=== PATIENT | female | born 1995 | race Caucasian/White ===

== ENCOUNTER 2016-08-15 12:28 | Inpatient (IN) | payer MEDICAID, OTHER ==
[~2016-08-15] VITALS: Ht 157.5 cm; Wt 61.8 kg
[~2016-08-15 12:28] MED LIST: BENZ100C70 PO; IBUP-1542 PO; PEN500 PO; PREN-29 PO
[2016-08-15 12:53] VITALS: Ht 157.5 cm; Wt 61.8 kg
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
[2016-08-15 13:39] LABS: BASOPHILS % 0.2 % (0.0-2.0); EOSINOPHILS % 0.6 % (0.0-7.0); HEMATOCRIT 32.9 % (37.0-47.0); HEMOGLOBIN 11.3 g/dl (12.0-16.0); LYMPHOCYTES # 1.9 10^3/ul (0.8-2.9); LYMPHOCYTES % 21.4 % (15.0-51.0); MEAN CORPUSCULAR HEMOGLOBIN 31.1 pg (29.0-33.0); MEAN CORPUSCULAR HGB CONC 34.3 g/dl (32.0-37.0); MEAN CORPUSCULAR VOLUME 90.7 fl (82.0-101.0); MEAN PLATELET VOLUME 7.4 fl (7.4-10.4); MONOCYTE # 0.6 10^3/ul (0.3-0.9); MONOCYTES % 6.5 % (0.0-11.0); NEUTROPHIL # 6.2 10^3/ul (1.6-7.5); NEUTROPHILS % 71.3 % (39.0-77.0); PLATELET COUNT 197 10^3/UL (140-440); RED BLOOD COUNT 3.63 10^6/ul (4.20-5.40); RED CELL DISTRIBUTION WIDTH 13.2 % (11.5-14.5); UNCORRECTED WBC 8.6 10^3/ul (4.8-10.8); WHITE BLOOD COUNT 8.6 10^3/ul (4.8-10.8)
[2016-08-15 13:40] LABS: CONDITION 1
[2016-08-15 13:43] LABS: INR 0.97; PROTIME 12.9 Sec (12.2-14.2)
[2016-08-15 13:44] LABS: PARTIAL THROMBOPLASTIN TIME 26.2 Sec (25.0-35.0)
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
[2016-08-15 16:48] LABS: BASOPHILS % 0.4 % (0.0-2.0); EOSINOPHILS # 0.1 10^3/ul (0.0-0.5); HEMATOCRIT 32.8 % (37.0-47.0); HEMOGLOBIN 11.3 g/dl (12.0-16.0); LYMPHOCYTES # 2.1 10^3/ul (0.8-2.9); LYMPHOCYTES % 25.8 % (15.0-51.0); MEAN CORPUSCULAR HEMOGLOBIN 31.2 pg (29.0-33.0); MEAN CORPUSCULAR HGB CONC 34.4 g/dl (32.0-37.0); MEAN CORPUSCULAR VOLUME 90.8 fl (82.0-101.0); MEAN PLATELET VOLUME 7.3 fl (7.4-10.4); MONOCYTE # 0.6 10^3/ul (0.3-0.9); MONOCYTES % 7.1 % (0.0-11.0); NEUTROPHIL # 5.4 10^3/ul (1.6-7.5); NEUTROPHILS % 65.7 % (39.0-77.0); PLATELET COUNT 200 10^3/UL (140-440); RED BLOOD COUNT 3.62 10^6/ul (4.20-5.40); RED CELL DISTRIBUTION WIDTH 13.2 % (11.5-14.5); UNCORRECTED WBC 8.3 10^3/ul (4.8-10.8); WHITE BLOOD COUNT 8.3 10^3/ul (4.8-10.8)
[2016-08-15 16:49] LABS: CONDITION 1
[2016-08-15 16:58] LABS: INR 0.95; PROTIME 12.7 Sec (12.2-14.2)
[2016-08-15 16:59] LABS: PARTIAL THROMBOPLASTIN TIME 26.9 Sec (25.0-35.0)
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
[2016-08-15] MEDS: LACTATED RINGER'S 1,000 ML IV SCH (18:41)
--- NOTE | 2016-08-15 20:05 | RADRPT ---
PROCEDURE: Obstetrical ultrasound greater than 14 weeks CLINICAL INDICATION: Contractions. Evaluate cervical length. TECHNIQUE: Real time sonographic imaging of the gravid uterus is performed transabdominally and mu ltiple static woody scale and Doppler images are submitted for review as are measurements. The image s are reviewed on the PACS. COMPARISON: Amniotic fluid index study of 08/15/2016 FINDINGS: The cervical os is closed with a normal cervical length of 4.29 cm. There is a single living intrauterine gestation in breech presentation. The heart beat is est imated at 146 bpm. RPTAT:HJJR IMPRESSION: 1. Single viable intrauterine gestation in breech presentation with the closed cervical length estim ated at 4.29 cm. Physician Gilbert Date Time Electronically viewed and signed by Physician Gilbert on 08/15/2016 20:04 JR/
[2016-08-15] MEDS ORDERED: ACETAMINOPHEN 325 MG TAB PO PRN (22:00)
[2016-08-16] MEDS: LACTATED RINGER'S 1,000 ML IV SCH ×2 (01:26→09:17)
[2016-08-16 06:25] LABS: INR 1.06; PARTIAL THROMBOPLASTIN TIME 26.4 Sec (25.0-35.0); PROTIME 13.8 Sec (12.2-14.2); PT RATIO 1.1
[2016-08-16 10:09] LABS: BASOPHILS % 0.4 % (0.0-2.0); EOSINOPHILS # 0.1 10^3/ul (0.0-0.5); EOSINOPHILS % 1.1 % (0.0-7.0); HEMATOCRIT 32.3 % (37.0-47.0); HEMOGLOBIN 10.9 g/dl (12.0-16.0); LYMPHOCYTES # 1.8 10^3/ul (0.8-2.9); LYMPHOCYTES % 25.1 % (15.0-51.0); MEAN CORPUSCULAR HEMOGLOBIN 31.3 pg (29.0-33.0); MEAN CORPUSCULAR HGB CONC 33.7 g/dl (32.0-37.0); MEAN CORPUSCULAR VOLUME 92.8 fl (82.0-101.0); MEAN PLATELET VOLUME 9.6 fl (7.4-10.4); MONOCYTE # 0.5 10^3/ul (0.3-0.9); MONOCYTES % 6.8 % (0.0-11.0); NEUTROPHIL # 4.7 10^3/ul (1.6-7.5); NEUTROPHILS % 65.5 % (39.0-77.0); PLATELET COUNT 184 10^3/UL (140-415); RED BLOOD COUNT 3.48 10^6/ul (4.20-5.40); RED CELL DISTRIBUTION WIDTH 12.8 % (11.5-14.5); WHITE BLOOD COUNT 7.2 10^3/ul (4.8-10.8)
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
== END 2016-08-16 12:55 | disposition home or self-care (01) | DRG 782 ==
LOC: OBT 12:28 → L-D 12:29 → OBG 18:00 → OBT 18:00
PROVIDERS: ADMIT Obstetrics & Gynecology; ATTEND Obstetrics & Gynecology
DX: O62.9 Abnormality of forces of labor, unspecified (principal); Z3A.26 26 weeks gestation of pregnancy; V43.52XA Car driver injured in collision with other type car in traffic accident, initial encounter; Y92.414 Local residential or business street as the place of occurrence of the external cause
CPT/HCPCS: 36415; 76815; 76817; 82731; 85025; 85384; 85460; 85610; 85730; 86850; 86900; 86901; G0463; J7120

== ENCOUNTER 2016-11-16 05:47 | Inpatient (IN) | payer OTHER ==
[~2016-11-16] VITALS: Ht 157.5 cm; Wt 73.0 kg
[~2016-11-16 05:47] MED LIST changes: -BENZ100C70 PO; -IBUP-1542 PO; -PEN500 PO
[2016-11-16 05:51] VITALS: Ht 157.5 cm; Wt 73.0 kg
[2016-11-16] MEDS ORDERED: OXYTOCIN 30 UNITS/LR 500 ML IV PRN ×2 (06:00→13:00)
[2016-11-16] MEDS ORDERED: METHYLERGONOVINE 0.2 MG INJ IM PRN ×2 (06:00→13:00)
[2016-11-16] MEDS ORDERED: CEFAZOLIN 2 GM/50 ML (PMX) 50 ML IV SCH (06:00)
[2016-11-16] MEDS ORDERED: CARBOPROST 250 MCG INJ IM PRN ×2 (06:00→13:00)
[2016-11-16] MEDS ORDERED: MISOPROSTOL 200 MCG TAB PR PRN ×2 (06:00→13:00)
[2016-11-16] MEDS ORDERED: OXYTOCIN 30 UNITS/LR 500 ML IV SCH (06:00)
[2016-11-16 06:12] VITALS: BP 102/62; PULSE 88; RESP 18
[2016-11-16] MEDS: LACTATED RINGER'S 1,000 ML IV SCH ×2 (06:20→07:40)
[2016-11-16 06:27] LABS: ADD SCAN DIFF NO
[2016-11-16 06:34] LABS: BASOPHILS % 0.4 % (0.0-2.0); EOSINOPHILS # 0.2 10^3/ul (0.0-0.5); EOSINOPHILS % 1.9 % (0.0-7.0); HEMATOCRIT 34.6 % (37.0-47.0); HEMOGLOBIN 11.7 g/dl (12.0-16.0); LYMPHOCYTES % 35.4 % (15.0-51.0); MEAN CORPUSCULAR HEMOGLOBIN 30.8 pg (29.0-33.0); MEAN CORPUSCULAR HGB CONC 33.8 g/dl (32.0-37.0); MEAN CORPUSCULAR VOLUME 91.1 fl (82.0-101.0); MEAN PLATELET VOLUME 9.7 fl (7.4-10.4); MONOCYTE # 0.8 10^3/ul (0.3-0.9); MONOCYTES % 9.4 % (0.0-11.0); NEUTROPHIL # 4.3 10^3/ul (1.6-7.5); NEUTROPHILS % 51.1 % (39.0-77.0); PLATELET COUNT 209 10^3/UL (140-415); RED CELL DISTRIBUTION WIDTH 12.6 % (11.5-14.5); WHITE BLOOD COUNT 8.4 10^3/ul (4.8-10.8)
[2016-11-16] MEDS ORDERED: EPHEDrine SULFATE 50 MG/5 ML SYG ONE (07:00)
[2016-11-16 07:07] LABS: INR 0.96; PARTIAL THROMBOPLASTIN TIME 26.7 Sec (25.0-35.0); PROTIME 12.8 Sec (12.2-14.2)
[2016-11-16] MEDS ORDERED: morphine SULFATE/PF (10 MG/10 ML) INJ ONE (07:51)
[2016-11-16] MEDS ORDERED: PHENYLephrine (100 MCG/ML) 5ML SYG ONE ×2 (07:54→08:29)
[2016-11-16] MEDS ORDERED: HYDROmorphONE 1 MG/ML SYG IV PRN ×2 (08:30)
[2016-11-16] MEDS ORDERED: ONDANSETRON 4 MG INJ IV PRN ×2 (08:30)
[2016-11-16] MEDS ORDERED: KETOROLAC 30 MG INJ IV ONE (08:30)
[2016-11-16] MEDS ORDERED: MEPERIDINE 25 MG INJ IV PRN (08:30)
[2016-11-16] MEDS ORDERED: DIPHENHYDRAMINE 50 MG INJ IV PRN (08:30)
[2016-11-16] MEDS ORDERED: HYDROmorphONE (0.2 MG/ML) 10ML SYG IV PRN ×2 (08:30)
[2016-11-16] MEDS ORDERED: FENTAnyl 50 MCG/ML VIAL IV PRN (08:30)
[2016-11-16] MEDS ORDERED: FENTAnyl 50 MCG/ML VIAL ONE ×2 (08:30→08:34)
[2016-11-16] MEDS ORDERED: NALOXONE (0.4 MG/ML) INJ IV PRN (08:30)
[2016-11-16] MEDS ORDERED: ONDANSETRON 4 MG INJ ONE (08:59)
--- NOTE | 2016-11-16 09:31 | HP ---
Date/Time of Note Date/Time of Note DATE: 11/16/16 TIME: 07:56 OB - History Hx of Present Free Text/Dictation 20 years old female 2 para 1 39 weeks and 1 day with the history of previous section admitted to [facility] being prepared to undergo repeat section this patient has been under the care of the [facility] as of August 2016 referred from [facility] for care for the rest of her During the latter part of her care there- has been no complication including but not limited to gestational diabetes or -induced hypertension [employer] 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 Menarche at age 10 history of one previous via section October 2014 no other surgery or hospitalization recorded in the patient's record for any other surgical or medical conditions Allergies denies allergies to any known medication Social habits Denies smoking or drinking Family history unremarkable Review of system within normal Physical examination 5 feet 2 133 pounds blood pressure 104/62 pulse 70 respiration 18 temperature 98.2 Head ears nose and throat negative Neck supple no thyromegaly Lungs clear to P&A Heart normal sinus rhythm no murmur Abdomen fundal height measures 36 cm from symphysis pubis to the height of the fundus Pelvic examination deferred Extremities no edema no varicosities Impression intrauterine at 39 weeks 1 day history of previous C- section patient declined trial of labor for vaginal after , complication of surgeries including bowel or bladder injury infection hemorrhage and hematoma discussed with the patient and she is willing to go ahead with the operation. Past Family/Social History * Past Medical, Surgical, Family and Obstetric Histories reviewed from chart. OB Admission Exam Vital Signs Vital Signs Vital Signs Date Time Temp Pulse Resp B/P Pulse Ox O2 Delivery O2 Flow Rate FiO2 11/16/16 06:12 98.3 88 18 102/62 Room Air Physical Exam HEENT: WNL Heart: Rhythm Normal Lungs: Clear, Equal Abdomen: WNL Extremities: Normal Reflexes: Normal Cervical Dilatation: other (Deferred) Effacement: Other (Deferred) Station: -2 Membranes: Intact Heart Rate: 130's Accelerations: Accelerations Present Decelerations: No Decelerations Varibility: Moderate Contractions on Admission: None Last 72 hours Lab Results CBC & BMP 11/16/16 06:05 OB Assessment/Plan Reason for admission: other (History of previous 39 weeks and 1 day admitted for repeat ) Plan: Section MARYANNE SANCHEZ MD November 16, 2016 09:31
--- NOTE | 2016-11-16 10:23 | OPR ---
DATE OF OPERATION: 11/16/2016 PREOPERATIVE DIAGNOSES: 1. Intrauterine at 39 weeks and 1 day. 2. History of previous section. POSTOPERATIVE DIAGNOSES: 1. Intrauterine at 39 weeks and 1 day. 2. History of previous section. PROCEDURE PERFORMED: Repeat transverse low cervical section. SURGEON: Maryanne Lyons MD SANITATION TECHNICIAN: Andi Valdes MD ANESTHESIA: Spinal. ANESTHESIOLOGIST: Zachery Adams MD FINDINGS: Live baby girl with 8 and 9. DETAILS OF THE PROCEDURE: Under satisfactory spinal anesthesia, the patient was prepped and draped and placed in supine position, tilted to the left. Pfannenstiel incision was made. Old scar was re moved. Incision carried through the subcutaneous tissue. Bleeders brought under control with elect rocautery. Fascia incised to the length of the incision. Rectus muscle divided in midline. Perito neum exposed, entered through a transverse incision. Exploration of abdomen: Gravid uterus, normal -appearing tubes and ovaries, extremely thinned out lower segment of the uterus to the thickness of 1 mm. Bladder flap was developed. Transverse incision was made in the lower segment of the uterus. Amniotic sac ruptured. Clear amniotic fluid noted. Live baby girl was delivered from unengaged v ertex. Nasal oropharyngeal suction was performed. Baby handed to the team for immediate a ttention. The patient received 20 units of Pitocin. Placenta delivered manually intact. Uterine c avity cleaned with wet sponge and drainage established. Uterus closed in 2 layers using Monocryl #1 in continuous fashion. Peritoneal cavity irrigated with warm saline. Sponge, needle and instrument reported to be correct. Abdominal peritoneum closed with 2-0 chromic catgut continuously. Rectus muscle approximated with a few interrupted 2-0 chromic catgut. Fascia closed with #1 PDS in a continuous fashion. Subcutan eous tissue approximated with 2-0 chromic catgut and the skin closed with arthur. Estimated blood loss was 600 mL. Urine bag contained 200 mL of clear urine. The patient tolerated the procedure we ll, transferred to recovery room in a good condition. Dictated By: MARYANNE HIGGINS/NTS Conf#: [id number] DID#: [id number]
[2016-11-16 12:05] VITALS: BP 103/52; PULSE 61; RESP 17
[2016-11-16] MEDS ORDERED: LANOLIN 7 GM TUBE TOP PRN (13:00)
[2016-11-16] MEDS ORDERED: ACETAMINOPHEN/CODEINE #3 TAB PO PRN ×2 (13:00)
[2016-11-16] MEDS ORDERED: OXYCODONE/ACETAMINOPHEN (5/325) TAB PO PRN (13:00)
[2016-11-16] MEDS ORDERED: CEFAZOLIN 1 GM/50 ML (PMX) 50 ML IVPB SCH (13:00)
[2016-11-16] MEDS: KETOROLAC 30 MG INJ IV PRN ×2 (13:36→23:01)
[2016-11-16] MEDS: OXYTOCIN 30 UNITS/LR 500 ML IV SCH ×3 (13:45→22:55)
[2016-11-16 16:00] VITALS: BP 106/53; PULSE 59; RESP 17
[2016-11-16 19:40] VITALS: BP 100/59; PULSE 70; RESP 19
[2016-11-16] MEDS: SENNA/DOCUSATE NA (8.6MG/50MG) TAB PO SCH (22:00)
[2016-11-17] VITALS: BP 104/62; PULSE 69; RESP 19
[2016-11-17] MEDS: OXYTOCIN 30 UNITS/LR 500 ML IV SCH ×4 (00:39→16:39)
[2016-11-17] MEDS ORDERED: LACTATED RINGER'S 1,000 ML IV ONE (03:30)
[2016-11-17 04:24] VITALS: BP 101/59; PULSE 67; RESP 18
[2016-11-17 07:29] LABS: ADD SCAN DIFF NO
[2016-11-17 07:32] LABS: BASOPHILS % 0.2 % (0.0-2.0); EOSINOPHILS # 0.1 10^3/ul (0.0-0.5); EOSINOPHILS % 0.9 % (0.0-7.0); HEMATOCRIT 34.3 % (37.0-47.0); HEMOGLOBIN 11.3 g/dl (12.0-16.0); LYMPHOCYTES # 2.1 10^3/ul (0.8-2.9); LYMPHOCYTES % 19.3 % (15.0-51.0); MEAN CORPUSCULAR HEMOGLOBIN 30.6 pg (29.0-33.0); MEAN CORPUSCULAR HGB CONC 32.9 g/dl (32.0-37.0); MEAN PLATELET VOLUME 9.7 fl (7.4-10.4); MONOCYTE # 0.9 10^3/ul (0.3-0.9); MONOCYTES % 7.9 % (0.0-11.0); NEUTROPHIL # 7.8 10^3/ul (1.6-7.5); NEUTROPHILS % 70.9 % (39.0-77.0); PLATELET COUNT 191 10^3/UL (140-415); RED BLOOD COUNT 3.69 10^6/ul (4.20-5.40); RED CELL DISTRIBUTION WIDTH 12.8 % (11.5-14.5)
[2016-11-17 08:26] VITALS: BP 90/52; PULSE 73; RESP 18
[2016-11-17] MEDS: KETOROLAC 30 MG INJ IV PRN (08:26)
[2016-11-17] MEDS: SENNA/DOCUSATE NA (8.6MG/50MG) TAB PO SCH ×2 (09:00→21:17)
[2016-11-17] MEDS: IBUPROFEN 600 MG TAB PO SCH ×2 (12:46→17:41)
--- NOTE | 2016-11-17 15:51 | PN ---
Date/Time of Note Date/Time of Note DATE: 11/17/16 TIME: 15:48 OB Subjective Subjective Subjective Post day 1 Afebrile vital signs are stable abdomen soft bowel sounds present incision dry uterus firm extremities normal ambulation encouraged MARYANNE SANCHEZ MD November 17, 2016 15:51
--- NOTE | 2016-11-17 15:53 | PN ---
Date/Time of Note Date/Time of Note DATE: 11/17/16 TIME: 15:52 OB Subjective Subjective Subjective Post day 1, afebrile vital signs stable abdomen soft incision dry bowel sounds lochia moderate extremities normal ambulation encouraged hemoglobin 11.1 hematocrit 34.3 WBC [id number] MARYANNE SANCHEZ MD November 17, 2016 15:53
[2016-11-17 16:20] VITALS: BP 92/63; PULSE 76; RESP 19
[2016-11-17] MEDS: OXYCODONE/ACETAMINOPHEN (5/325) TAB PO PRN (16:20)
[2016-11-17 20:00] VITALS: BP 105/60; PULSE 60; RESP 18
[2016-11-18] MEDS: IBUPROFEN 600 MG TAB PO SCH ×5 (00:04→23:38)
[2016-11-18] MEDS: OXYCODONE/ACETAMINOPHEN (5/325) TAB PO PRN ×3 (04:19→19:14)
[2016-11-18 04:30] VITALS: BP 109/61; RESP 18
[2016-11-18 09:00] VITALS: BP 109/70; PULSE 77; RESP 18
[2016-11-18] MEDS: SENNA/DOCUSATE NA (8.6MG/50MG) TAB PO SCH ×2 (09:14→20:49)
[2016-11-18 15:50] VITALS: BP 99/58; PULSE 65; RESP 18
--- NOTE | 2016-11-18 16:33 | PN ---
Date/Time of Note Date/Time of Note DATE: 11/18/16 TIME: 16:30 OB Subjective Subjective Subjective Post day 2 Afebrile vital signs are stable abdomen soft incision dry bowel sounds present bowel movement positive ambulation recommended plan of a.m. discharge discussed with the patient OB Assessment/Plan Plan: Expectant Management MARYANNE SANCHEZ MD November 18, 2016 16:33
[2016-11-18 19:40] VITALS: BP 111/62; PULSE 60; RESP 18
[2016-11-19 03:50] VITALS: BP 107/70; PULSE 58; RESP 18
[2016-11-19] MEDS: IBUPROFEN 600 MG TAB PO SCH (05:41)
[2016-11-19 08:00] VITALS: BP 112/70; PULSE 58; RESP 18
[2016-11-19] MEDS: SENNA/DOCUSATE NA (8.6MG/50MG) TAB PO SCH (08:06)
[2016-11-19] MEDS: OXYCODONE/ACETAMINOPHEN (5/325) TAB PO PRN (08:06)
[2016-11-19] MEDS ORDERED: DIPHTH/TET/ACEL PERTUSS (ADULT) 0.5 ML VIAL IM* ONE (09:00)
--- NOTE | 2016-11-19 11:49 | DS ---
Date/Time of Note Date/Time of Note DATE: 11/19/16 TIME: 11:45 Discharge Summary Admission/Discharge Info Admit Date/Time November 16, 2016 at 05:47 Discharge Date/Time November 19, 2016 at 1145 Final Diagnosis Term post day 3 Patient Condition: Good Procedures Repeat Hx of Present Illness 39 weeks history of previous Hospital Course Satisfactory uneventful Home Meds Reported Medications Vit-Fe Fumarate-FA* (Dm Tablet*) 1 Tab Tablet, 1 TAB PO DAILY, TAB 11/02/14 Follow-up Plan instructions given recommended appointment in 4 days at the office to discontinue arthur at the time of discharge patient received a prescription of analgesics for post pain relief Primary Care Provider [facility] [place] [place] Time spent on discharge: < 30 minutes MARYANNE SANCHEZ MD November 19, 2016 11:49
== END 2016-11-19 12:00 | disposition home or self-care (01) | DRG 766 ==
LOC: L-D 05:47 → PP1 11:54
PROVIDERS: ADMIT Obstetrics & Gynecology; ATTEND Obstetrics & Gynecology
PROC: 10D00Z1 Extraction of Products of Conception, Low, Open Approach (ICD-10-PCS; principal; 2016-11-16 07:30)
DX: O34.211 Maternal care for low transverse scar from previous cesarean delivery (principal); Z37.0 Single live birth; Z3A.39 39 weeks gestation of pregnancy
CPT/HCPCS: 85025; 85610; 85730; 86592; 86850; 86900; 86901; 87340; 90715; 94760; 99464; J0690; J1885; J2274; J2370; J2405; J2590; J3010; J7120